=== PATIENT | female | born 1975 | race Hispanic/Latino ===

== ENCOUNTER → 2019-12-22 | Outpatient (CLI) | payer BC | END | disposition home or self-care (01) | LOC: RAH 14:57 | PROVIDERS: ATTEND Obstetrics & Gynecology | DX: Z12.31 Encounter for screening mammogram for malignant neoplasm of breast (principal) | CPT/HCPCS: 77067 ==

== ENCOUNTER → 2021-02-20 | Outpatient (CLI) | payer BC | END | disposition home or self-care (01) | LOC: RAH 10:00 | PROVIDERS: ATTEND Obstetrics & Gynecology | DX: Z12.31 Encounter for screening mammogram for malignant neoplasm of breast (principal) | CPT/HCPCS: 77067 ==

== ENCOUNTER → 2024-06-24 | Outpatient (CLI) | payer BC ==
--- NOTE | 2024-06-24 11:01 | HMCIMG ---
SCREENING MAMMOGRAM REASON: Annual Exam COMPARISON: 03/02/2022 TECHNIQUE: CC and MLO views of the bilateral breasts were performed.Implant displacement views were performed as well. CAD was performed as well. FINDINGS: Parenchymal density: There are scattered areas of fibroglandular density. There are no focal mass lesions. There are no pathologic appearing calcifications. There is no evidence of architectural distortion or skin thickening. There are implants in place without evidence of rupture. IMPRESSION: Stable screening mammogram. The patient was entered into a reminder system with a target due date for their next mammogram. BI-RADS CATEGORY 2: BENIGN FINDINGS Recommend monthly self breast exam as well as annual clinical examination. A negative x-ray should not delay biopsy if a dominant or clinically suspicious mass is present, since 8-10% of cancers are not identified by mammography. Dense breasts particularly, may obscure an underlying neoplasm. Some of these may be detected clinically and therefore, clinical examination is an essential part of breast evaluation.
== END | disposition home or self-care (01) ==
LOC: RAH 08:44
PROVIDERS: ATTEND Obstetrics & Gynecology
DX: Z12.31 Encounter for screening mammogram for malignant neoplasm of breast (principal); R92.323 Mammographic fibroglandular density, bilateral breasts
CPT/HCPCS: 77067